=== PATIENT | male | born 1990 | race African-American/Black ===

== ENCOUNTER 2018-04-30 18:26 | Emergency (ER) | payer OTHER ==
[2018-04-30] MEDS ORDERED: Proparacaine 0.5% Opth 15 ML BOT ONE (18:53)
[2018-04-30] MEDS ORDERED: Fluorescein Opthalmic Strip ONE (18:53)
[2018-04-30] MEDS ORDERED: Ketorolac Tromethamine 60 MG/2 ML VIAL ONE (18:53)
== END 2018-04-30 20:30 | disposition home or self-care (01) ==
LOC: ERS 18:26
DX: T54.2X1A Toxic effect of corrosive acids and acid-like substances, accidental (unintentional), initial encounter (principal); T26.91XA Corrosion of right eye and adnexa, part unspecified, initial encounter; Y92.69 Other specified industrial and construction area as the place of occurrence of the external cause; Y99.0 Civilian activity done for income or pay
CPT/HCPCS: 96372; J1885

== ENCOUNTER 2018-05-03 16:47 | Emergency (ER) | payer OTHER ==
[2018-05-03] MEDS ORDERED: Fluorescein Opthalmic Strip ONE (17:19)
[2018-05-03] MEDS ORDERED: Proparacaine 0.5% Opth 15 ML BOT ONE (17:19)
[2018-05-03] MEDS ORDERED: Ibuprofen 200 MG TAB ONE (17:22)
[2018-05-03] MEDS ORDERED: Cyclopentolate 0.5% Opth Drops 15 ML BOT EA EYE SCH (18:15)
[2018-05-03] MEDS ORDERED: Cyclopentolate 1% Opth Drop 2 ML BOT ONE (18:27)
== END 2018-05-03 18:43 | disposition home or self-care (01) ==
LOC: ERS 16:47
DX: H20.9 Unspecified iridocyclitis (principal)
CPT/HCPCS: 99283

== ENCOUNTER 2018-06-10 07:40 | Emergency (ER) | payer OTHER, SELFPAY ==
[2018-06-10] MEDS ORDERED: Ketorolac Tromethamine 60 MG/2 ML VIAL ONE (08:17)
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
== END 2018-06-10 13:58 | disposition home or self-care (01) ==
LOC: ERS 07:40
DX: S20.211A Contusion of right front wall of thorax, initial encounter (principal); S40.011A Contusion of right shoulder, initial encounter; V43.52XA Car driver injured in collision with other type car in traffic accident, initial encounter
CPT/HCPCS: 71045; 96372; J1885

== ENCOUNTER 2025-07-15 11:15 | Emergency (ER) | payer SELFPAY ==
[2025-07-15 11:43] LABS: #Basophils 0.06 10x3/uL (0.0-0.2); #Eosinophils 0.07 10x3/uL (0.0-0.7); #Monocytes 1.00 10x3/uL (0.11-0.59); #Neutrophils 6.69 10x3/uL (1.40-6.50); %Basophils 0.6 % (0.0-1.0); %Eosinophils 0.7 % (0.0-10.0); %Lymphocytes 22.0 % (21.0-51.0); %Monocytes 9.9 % (0.0-10.0); %Neutrophils 66.5 % (42.0-75.0); Hematocrit 37.9 % (42.0-52.0); Hemoglobin 11.9 g/dL (14.0-18.0); Mean Corpuscular Hemoglobin 26.9 pg (27.0-31.0); Mean Corpuscular Volume 85.6 fL (78.0-98.0); Platelet Count 285 10x3/uL (130-400); Red Blood Cell (RBC) Count 4.43 mill/uL (4.70-6.10); White Blood Cell (WBC) Count 10.06 10x3/uL (4.8-10.8)
[2025-07-15 12:04] LABS: Lipase 25 U/L (8-78)
[2025-07-15 12:06] LABS: ALT (SGPT) 16 U/L (Less than 45); AST (SGOT) 25 U/L (11-34); Albumin 4.3 g/dL (3.1-4.5); Alkaline Phosphatase 67 U/L (40-110); Anion Gap 15 mmol/L (10-20); BUN (Urea Nitrogen) 11 mg/dL (8.4-25.7); Bilirubin, Total 0.3 mg/dL (0.3-1.2); CK (CPK) 486 U/L (30-200); Calc. Creatinine Clearance 0 mL/min (70-130); Calcium 8.6 mg/dL (7.8-10.44); Carbon Dioxide 21 mmol/L (23-31); Chloride 107 mmol/L (98-107); Globulin 3.0 g/dL (2.4-3.5); Glucose 188 mg/dL (83-110); Potassium 2.8 mmol/L (3.5-5.1); Sodium 140 mmol/L (136-145)
[2025-07-15 12:07] LABS: Acetaminophen Less than 10 mcg/mL (Less than 10); Salicylate Less than 8.0 mg/dL (Less than 8.0)
[2025-07-15 12:32] LABS: Bacteria/HPF None Seen HPF (None Seen); CAUTI Indications for Culture Dysuria,urgency,freq; Glucose, Urine (Dipstick) Normal (Negative); Leukocyte Negative Leu/uL (Negative); Protein, Urine (Dipstick) 10 mg/dL (Neg-Trace); RBC/HPF 0-3 HPF (0-3); Specific Gravity, Urine 1.026 (1.002-1.036); WBC/HPF 0-3 HPF (0-3)
[2025-07-15 12:35] LABS: Urine Culture Reflex No No
[2025-07-15 12:40] LABS: Cocaine Metabolite Screen Negative (Negative); THC/Cannabinoid Screen Negative (Negative); Tricyclic Screen Negative (Negative)
== END 2025-07-15 15:00 | disposition home or self-care (01) ==
LOC: EDBD 11:15 → ERS 11:15 → MERGE 11:15 → ERS 15:00
DX: R41.82 Altered mental status, unspecified (principal)
CPT/HCPCS: 51701; 70450; 80053; 80306; 80307; 81001; 82140; 82550; 83605; 83690; 84443; 85025; 93005; 94760; 96361; 96365; 96366; 96375; J2060; J3480